=== PATIENT | female | born 1955 | race Caucasian/White ===

== ENCOUNTER → 2016-11-07 | Outpatient (CLI) | payer BC ==
--- NOTE | 2016-11-09 10:20 | MM ---
Reason for exam: screening (asymptomatic). Last mammogram was performed 1 year ago. History: Patient is postmenopausal and is nulliparous. Benign left mammotome panel of the left breast, September 26, 2004. Excisional biopsy of the left breast, 1994. Physical Findings: A clinical breast exam by your physician is recommended on an annual basis and results should be correlated with mammographic findings. MG Screening Mammo w CAD Bilateral CC and MLO view(s) were taken. Prior study comparison: November 04, 2015, bilateral MG screening mammo w CAD. September 24, 2014, bilateral MG screening mammo w CAD. July 30, 2013, bilateral MG screening mammo w CAD. There are scattered fibroglandular densities. No suspicious abnormality. No significant changes when compared with prior studies. ASSESSMENT: Negative, BI-RAD 1 RECOMMENDATION: Routine screening mammogram of both breasts in 1 year.
== END | disposition home or self-care (01) ==
LOC: RADMAMWWP 10:57
PROVIDERS: ATTEND Family Medicine
DX: Z12.31 Encounter for screening mammogram for malignant neoplasm of breast (principal)

== ENCOUNTER → 2018-01-01 | Outpatient (CLI) | payer BC ==
--- NOTE | 2018-01-02 09:31 | MM ---
Reason for exam: screening (asymptomatic). Last mammogram was performed 1 year and 2 months ago. History: Patient is postmenopausal and is nulliparous. Benign left mammotome panel of the left breast, September 26, 2004. Excisional biopsy of the left breast, 1994. Physical Findings: A clinical breast exam by your physician is recommended on an annual basis and results should be correlated with mammographic findings. MG Screening Mammo w CAD Bilateral CC and MLO view(s) were taken. Prior study comparison: November 07, 2016, bilateral MG screening mammo w CAD. November 04, 2015, bilateral MG screening mammo w CAD. The breast tissue is heterogeneously dense. This may lower the sensitivity of mammography. There are benign appearing round regional calcifications bilaterally. There is no discrete abnormality. ASSESSMENT: Benign, BI-RAD 2 RECOMMENDATION: Routine screening mammogram of both breasts in 1 year.
== END | disposition home or self-care (01) ==
LOC: RADMAMWWP 10:54
PROVIDERS: ATTEND Family Medicine
DX: Z12.31 Encounter for screening mammogram for malignant neoplasm of breast (principal)
CPT/HCPCS: 77067

== ENCOUNTER → 2018-10-23 | Outpatient (CLI) | payer BC ==
[2018-10-23 17:46] LABS: African American GFR (CKD) 90.9 (60.0-200.0); Albumin 4.6 g/dL (3.80-4.90); Albumin/Globulin Ratio 2.42 (1.60-3.17); Anion Gap 7.8 mmol/L (4.00-12.00); BUN/Creat Ratio 16.25 Ratio (12.00-20.00); Carbon Dioxide 28.2 mmol/L (21.6-31.8); Globulin 1.9 g/dL (1.6-3.3); Potassium 5.9 mmol/L (3.5-5.5); Total Bilirubin 0.4 mg/dL (0.2-1.2); Total Protein 6.5 g/dL (6.2-8.2)
[2018-10-23 18:41] LABS: Hemoglobin A1C 5.9 % (4.0-6.0)
== END | disposition home or self-care (01) ==
LOC: LABWHC1 09:28
PROVIDERS: ATTEND Nurse Practitioner
DX: Z00.01 Encounter for general adult medical examination with abnormal findings (principal); I10 Essential (primary) hypertension
CPT/HCPCS: 36415; 80053; 80061; 82306; 83036; 84443

== ENCOUNTER → 2019-09-08 | Outpatient (CLI) | payer BC ==
--- NOTE | 2019-09-08 13:42 | XR ---
EXAM TYPE: LUMBAR SPINE X RAY SERIES COMPARISON: NONE HISTORY: Pain TECHNIQUE: 4 views are submitted. FINDINGS: Alignment is anatomic. The pedicles are intact. The transverse processes are intact. There is no s pondylolysis or spondylolisthesis. Diffuse osteopenia. Multilevel facet arthropathy and degenerative disc disease. IMPRESSION: 1. Diffuse osteopenia with multilevel degenerative disc disease and facet arthropathy most marked at L5-S1. Multilevel foraminal encroachment suspected consider MRI.
--- NOTE | 2019-09-08 13:43 | XR ---
EXAMINATION TYPE: XR Hip Bilateral Complete DATE OF EXAM: 09/08/2019 COMPARISON: NONE HISTORY: Back pain TECHNIQUE: 2 views submitted FINDINGS: There is moderate concentric narrowing the joint space slightly greater superiorly. Hypertrophic spur ring noted and there is hypertrophic change of the acetabulum as well as a spur involving the greater trochanter. No acute fracture or dislocation. IMPRESSION: 1. Bilateral moderate to severe arthropathy correlate for femoral acetabular impingement. 2. Bilateral greater trochanter spurring which could be associated with trochanteric bursitis.
== END | disposition home or self-care (01) ==
LOC: RADXRMAIN 12:48
PROVIDERS: ATTEND Pediatrics
DX: M47.817 Spondylosis without myelopathy or radiculopathy, lumbosacral region (principal); M12.852 Other specific arthropathies, not elsewhere classified, left hip; M12.851 Other specific arthropathies, not elsewhere classified, right hip; M85.88 Other specified disorders of bone density and structure, other site
CPT/HCPCS: 72110; 73521

== ENCOUNTER 2020-01-12 12:22 | Emergency (ER) | payer BC ==
[2020-01-12 12:29] VITALS: RESP 18; TEMP 97.9
[2020-01-12] MEDS ORDERED: SODIUM CHLORIDE 0.9% 500 ML 500 ML IV STA (12:35)
[2020-01-12] MEDS ORDERED: SODIUM CHLORIDE 0.9% 1,000 ML IV STA (12:35)
--- NOTE | 2020-01-12 13:03 | ED ---
Weakness HPI - General Chief complaint: Fall Stated complaint: fall/lower back pain Time Seen by Provider: 01/12/20 12:34 Source: patient, family, RN notes reviewed, old records reviewed Mode of arrival: wheelchair Limitations: no limitations - History of Present Illness Initial comments: This is a 64-year-old female she presents today for evaluation regards multiple recent falls she denies any other neurological veins no headaches no numbness and tingling in arms or legs no loss of vision, she feels like it is mostly found that she is. No issues with mental status does have neurology follow-up next week. Patient fell today resulting in some significant back pain as well MD Complaint: generalized weakness, difficulty walking (Dizziness) -: week(s) Location: generalized Severity: mild Consistency: intermittent Improves with: none Worsens with: none Context: history of similar Associated Symptoms: confusion - Related Data Home Medications Medication Instructions Recorded Confirmed Acetaminophen Tab [Tylenol Tab] 500 mg PO Q8H PRN 01/12/20 01/12/20 Escitalopram [Lexapro] 10 mg PO DAILY 01/12/20 01/12/20 amLODIPine [Norvasc] 10 mg PO DAILY 01/12/20 01/12/20 Allergies Allergy/AdvReac Type Severity Reaction Status Date / Time No Known Allergies Allergy Verified 01/12/20 13:49 Review of Systems ROS Statement: Those systems with pertinent positive or pertinent negative responses have been documented in the HPI. ROS Other: All systems not noted in ROS Statement are negative. Past Medical History Past Medical History: Hypertension History of Any Multi-Drug Resistant Organisms: None Reported Past Surgical History: No Surgical Hx Reported Past Psychological History: Anxiety Smoking Status: Former smoker Past Alcohol Use History: None Reported Past Drug Use History: None Reported General Exam Limitations: no limitations General appearance: alert, in no apparent distress Head exam: Present: atraumatic, normocephalic, normal inspection Eye exam: Present: normal appearance, PERRL, EOMI. Absent: scleral icterus, conjunctival injection, periorbital swelling ENT exam: Present: normal exam, mucous membranes moist Neck exam: Present: normal inspection. Absent: tenderness, meningismus, lymphadenopathy Respiratory exam: Present: normal lung sounds bilaterally. Absent: respiratory distress, wheezes, rales, rhonchi, stridor Cardiovascular Exam: Present: regular rate, normal rhythm, normal heart sounds. Absent: systolic murmur, diastolic murmur, rubs, gallop, clicks GI/Abdominal exam: Present: soft, normal bowel sounds. Absent: distended, tenderness, guarding, rebound, rigid Extremities exam: Present: normal inspection, full ROM, normal capillary refill. Absent: tenderness, pedal edema, joint swelling, calf tenderness Back exam: Present: normal inspection Neurological exam: Present: alert, oriented X3, CN II-XII intact Psychiatric exam: Present: normal affect, normal mood Skin exam: Present: warm, dry, intact, normal color. Absent: rash Course Vital Signs 01/12/20 01/12/20 01/12/20 12:23 13:52 14:51 Temperature 97.9 F Pulse Rate 82 73 70 Respiratory 18 18 18 Rate Blood Pressure 136/75 127/62 127/69 O2 Sat by Pulse 99 98 99 Oximetry - Reevaluation(s) Reevaluation #1: 01/12/20 13:23 Medical records reviewed Reevaluation #2: 01/12/20 16:01 The patient length regarding symptoms, patient is refusing hospital admission and psychiatric or neurologic evaluation, patient has outpatient neurologic evaluation set up and patient will be EKG Findings - EKG Comments: EKG Findings:: EKG is sinus rate 79 KS 120 QRS 88 QTc 460 Medical Decision Making - Medical Decision Making 64 female to the ER for evaluation patient patient hasn't did look like normal pressure hydrocephalus on exam hydrocephalus on the computed tomography scan no patient does not want evaluation has outpatient evaluation 7 patient will be discharged home refusing admission - Lab Data Result diagrams: 01/12/20 12:57 01/12/20 12:57 Lab Results 01/12/20 01/12/20 01/12/20 Range/Units 12:57 12:57 12:57 WBC 13.6 H (3.8-10.6) k/uL RBC 4.31 (3.80-5.40) m/uL Hgb 13.2 (11.4-16.0) gm/dL Hct 41.5 (34.0-46.0) % MCV 96.2 (80.0-100.0) fL MCH 30.7 (25.0-35.0) pg MCHC 31.9 (31.0-37.0) g/dL RDW 12.2 (11.5-15.5) % Plt Count 244 (150-450) k/uL Neutrophils % 91 % Lymphocytes % 5 % Monocytes % 3 % Eosinophils % 0 % Basophils % 0 % Neutrophils # 12.4 H (1.3-7.7) k/uL Lymphocytes # 0.7 L (1.0-4.8) k/uL Monocytes # 0.4 (0-1.0) k/uL Eosinophils # 0.1 (0-0.7) k/uL Basophils # 0.0 (0-0.2) k/uL PT 9.9 (9.0-12.0) sec INR 0.9 (<1.2) APTT 20.1 L (22.0-30.0) sec Sodium 135 L (137-145) mmol/L Potassium 4.5 (3.5-5.1) mmol/L Chloride 104 (98-107) mmol/L Carbon Dioxide 25 (22-30) mmol/L Anion Gap 6 mmol/L BUN 18 H (7-17) mg/dL Creatinine 0.66 (0.52-1.04) mg/dL Est GFR (CKD-EPI)AfAm >90 (>60 ml/min/1.73 sqM) Est GFR (CKD-EPI)NonAf >90 (>60 ml/min/1.73 sqM) Glucose 110 H (74-99) mg/dL Calcium 9.7 (8.4-10.2) mg/dL Phosphorus 4.0 (2.5-4.5) mg/dL Magnesium 2.1 (1.6-2.3) mg/dL Total Bilirubin 0.4 (0.2-1.3) mg/dL AST 31 (14-36) U/L ALT 19 (4-34) U/L Alkaline Phosphatase 68 (38-126) U/L Creatine Kinase 99 (30-135) U/L Troponin I (0.000-0.034) ng/mL Total Protein 7.0 (6.3-8.2) g/dL Albumin 4.2 (3.5-5.0) g/dL Urine Color Urine Appearance (Clear) Urine pH (5.0-8.0) Ur Specific [place] (1.001-1.035) Urine Protein (Negative) Urine Glucose (UA) (Negative) Urine Ketones (Negative) Urine Blood (Negative) Urine Nitrite (Negative) Urine Bilirubin (Negative) Urine Urobilinogen (<2.0) mg/dL Ur Leukocyte Esterase (Negative) Urine WBC (0-5) /hpf Ur Squamous Epith Cells (0-4) /hpf Amorphous Sediment (None) /hpf Urine Mucus (None) /hpf 01/12/20 01/12/20 Range/Units 12:57 14:00 WBC (3.8-10.6) k/uL RBC (3.80-5.40) m/uL Hgb (11.4-16.0) gm/dL Hct (34.0-46.0) % MCV (80.0-100.0) fL MCH (25.0-35.0) pg MCHC (31.0-37.0) g/dL RDW (11.5-15.5) % Plt Count (150-450) k/uL Neutrophils % % Lymphocytes % % Monocytes % % Eosinophils % % Basophils % % Neutrophils # (1.3-7.7) k/uL Lymphocytes # (1.0-4.8) k/uL Monocytes # (0-1.0) k/uL Eosinophils # (0-0.7) k/uL Basophils # (0-0.2) k/uL PT (9.0-12.0) sec INR (<1.2) APTT (22.0-30.0) sec Sodium (137-145) mmol/L Potassium (3.5-5.1) mmol/L Chloride (98-107) mmol/L Carbon Dioxide (22-30) mmol/L Anion Gap mmol/L BUN (7-17) mg/dL Creatinine (0.52-1.04) mg/dL Est GFR (CKD-EPI)AfAm (>60 ml/min/1.73 sqM) Est GFR (CKD-EPI)NonAf (>60 ml/min/1.73 sqM) Glucose (74-99) mg/dL Calcium (8.4-10.2) mg/dL Phosphorus (2.5-4.5) mg/dL Magnesium (1.6-2.3) mg/dL Total Bilirubin (0.2-1.3) mg/dL AST (14-36) U/L ALT (4-34) U/L Alkaline Phosphatase (38-126) U/L Creatine Kinase (30-135) U/L Troponin I <0.012 (0.000-0.034) ng/mL Total Protein (6.3-8.2) g/dL Albumin (3.5-5.0) g/dL Urine Color Light Yellow Urine Appearance Cloudy H (Clear) Urine pH 7.0 (5.0-8.0) Ur Specific [place] 1.013 (1.001-1.035) Urine Protein Negative (Negative) Urine Glucose (UA) Negative (Negative) Urine Ketones Negative (Negative) Urine Blood Negative (Negative) Urine Nitrite Negative (Negative) Urine Bilirubin Negative (Negative) Urine Urobilinogen <2.0 (<2.0) mg/dL Ur Leukocyte Esterase Negative (Negative) Urine WBC 1 (0-5) /hpf Ur Squamous Epith Cells <1 (0-4) /hpf Amorphous Sediment Occasional H (None) /hpf Urine Mucus Rare H (None) /hpf - Radiology Data Radiology results: report reviewed (CT brain does show some hydrocephalus), image reviewed Disposition Clinical Impression: Dizziness, Hydrocephalus Disposition: HOME SELF-CARE Condition: Fair Instructions (If sedation given, give patient instructions): Fall Prevention for Older Adults (ED), Hydrocephalus (DC) Is patient prescribed a controlled substance at d/c from ED?: No Referrals: Josh Scherer MD [Primary Care Provider] - 1-2 days
[2020-01-12 13:35] LABS: Basophils % (A) 0 %; Eosinophils # (A) 0.1 k/uL (0-0.7); Eosinophils % (A) 0 %; HCT 41.5 % (34.0-46.0); HGB 13.2 gm/dL (11.4-16.0); Lymphocytes # (A) 0.7 k/uL (1.0-4.8); Lymphocytes % (A) 5 %; MCH 30.7 pg (25.0-35.0); MCHC 31.9 g/dL (31.0-37.0); MCV 96.2 fL (80.0-100.0); Mean Platelet Volume 8.1; Monocytes # (A) 0.4 k/uL (0-1.0); Monocytes % (A) 3 %; Neutrophils # (A) 12.4 k/uL (1.3-7.7); Neutrophils % (A) 91 %; Platelet Count 244 k/uL (150-450); RBC 4.31 m/uL (3.80-5.40); RDW 12.2 % (11.5-15.5); WBC 13.6 k/uL (3.8-10.6)
--- NOTE | 2020-01-12 13:42 | CT ---
EXAMINATION TYPE: CT brain wo con DATE OF EXAM: 01/12/2020 HISTORY: Fall. CT DLP: 1086.4 mGycm. Automated Exposure Control for Dose Reduction was Utilized. TECHNIQUE: CT scan of the head is performed without contrast. COMPARISON: None FINDINGS: There is no acute intracranial hemorrhage, midline shift, or mass effect identified. There is marked lateral and third ventricular dilatation which is out of proportion to cortical sulci. No extra-axial fluid collection. Bones and extracranial soft tissues are intact. The globes are gross ly symmetric. No evidence of depressed calvarial fracture. Mastoid air cells are clear. There is muco saman thickening of the left sphenoid sinus. Globes are grossly symmetric. IMPRESSION: 1. No acute intracranial hemorrhage, midline shift, or mass effect. 2. Hydrocephalus, with disproportionate lateral and third ventriculomegaly.
--- NOTE | 2020-01-12 13:46 | CT ---
EXAMINATION TYPE: CT lumbar spine wo con DATE OF EXAM: 01/12/2020 1:25 PM COMPARISON: None HISTORY: Fall with back pain CT DLP: 769.3 mGycm Automated exposure control for dose reduction was used. Unenhanced CT of the lumbar spine was performed. Bone and soft tissue window settings are submitted as well as coronal and sagittal reconstructions. There is no evidence of acute fracture or dislocation of the lumbar spine. Vertebral body heights are normal. No significant disc space narrowing. There is mild degenerative disc disease and facet arthr opathy. There is a left subarticular disc osteophyte at T12-L1 with indention of the ventral aspect o f the thecal sac. No high-grade canal stenosis. No high-grade neural foraminal bony encroachment. No abdominal aortic aneurysm. No nephrolithiasis. IMPRESSION: No acute fracture or dislocation of the lumbar spine.
[2020-01-12 13:50] LABS: ALT 19 U/L (4-34); AST 31 U/L (14-36); African American GFR (CKD) >90 (>60 ml/min/1.73 sqM); Albumin 4.2 g/dL (3.5-5.0); Alkaline Phosphatase 68 U/L (38-126); Anion Gap 6 mmol/L; Blood Urea Nitrogen 18 mg/dL (7-17); Calcium 9.7 mg/dL (8.4-10.2); Carbon Dioxide 25 mmol/L (22-30); Chloride 104 mmol/L (98-107); Creatine Kinase 99 U/L (30-135); Glucose 110 mg/dL (74-99); Magnesium 2.1 mg/dL (1.6-2.3); Non-African American GFR(CKD) >90 (>60 ml/min/1.73 sqM); Potassium 4.5 mmol/L (3.5-5.1); Sodium 135 mmol/L (137-145); Total Bilirubin 0.4 mg/dL (0.2-1.3)
[2020-01-12 13:58] LABS: INR 0.9 (<1.2); Partial Thromboplastin Time 20.1 sec (22.0-30.0); Prothrombin Time 9.9 sec (9.0-12.0)
[2020-01-12 14:23] LABS: Amorphous Sediment,Urine Occasional /hpf; Appearance,Urine Cloudy (Clear); Bilirubin,Urine Negative (Negative); Blood,Urine Negative (Negative); Color,Urine Light Yellow; Glucose,Urine (UA) Negative (Negative); Ketones,Urine Negative (Negative); Leukocyte Esterase,Urine Negative (Negative); Mucus,Urine Rare /hpf; Nitrite,Urine Negative (Negative); Protein,Urine Negative (Negative); Specific Gravity,Urine 1.013 (1.001-1.035); Squamous Epithelial Cell,Urine <1 /hpf (0-4); Urobilinogen,Urine <2.0 mg/dL (<2.0); WBC,Urine 1 /hpf (0-5)
[2020-01-12] MEDS ORDERED: ACET/COD 300 MG/30 MG STARTER PACK 6 TAB BTL PO STA (16:12)
[2020-01-12] MEDS ORDERED: Acetaminophen-Codeine 300-30mg TAB PO STA (16:12)
[2020-01-12 16:23] VITALS: BP 122/63; PULSE 68
== END 2020-01-12 16:22 | disposition home or self-care (01) ==
LOC: EC 12:22
DX: G91.9 Hydrocephalus, unspecified (principal); R42 Dizziness and giddiness; I10 Essential (primary) hypertension; F41.9 Anxiety disorder, unspecified; Z79.899 Other long term (current) drug therapy; Z87.891 Personal history of nicotine dependence; W19.XXXA Unspecified fall, initial encounter
CPT/HCPCS: 36415; 70450; 72131; 80053; 81001; 82550; 83735; 84100; 84484; 85025; 85610; 85730; 93005; 96360; 96361; 99284

== ENCOUNTER → 2020-02-24 | Outpatient (CLI) | payer BC ==
--- NOTE | 2020-02-24 22:30 | CT ---
EXAMINATION TYPE: CT brain wo con DATE OF EXAM: 02/24/2020 COMPARISON: 01/12/2020. HISTORY: weakness, confusion, loss of balance CT DLP: 1210 mGycm Automated exposure control for dose reduction was used. FINDINGS: There is interval placement of a right parietal approach ventriculostomy catheter with tip in the rig ht occipital horn. There is unchanged marked dilatation of the lateral and third ventricles. Otherwise no acute intracranial hemorrhage, midline shift or mass effect. The bailey-white differentiat ion is maintained. Otherwise no acute osseous abnormality. The paranasal sinuses and mastoid air cells are adequately ae rated. IMPRESSION: Interval right-sided ventriculostomy catheter placement. Persistent marked ventriculomegaly. Recommend clinical correlation for catheter malfunction. No intracranial hemorrhage or midline shift.
== END | disposition home or self-care (01) ==
LOC: RADCTMAIN 17:17
DX: G93.89 Other specified disorders of brain (principal); Z98.2 Presence of cerebrospinal fluid drainage device
CPT/HCPCS: 70450

== ENCOUNTER → 2020-03-22 | Outpatient (CLI) | payer BC ==
--- NOTE | 2020-03-22 17:35 | CT ---
EXAMINATION TYPE: CT brain wo con DATE OF EXAM: 03/22/2020 COMPARISON: 02/24/2020 and prior. HISTORY: Communicating hydrocephalus. Pt states she is having difficulty walking. CT DLP: 1181.70 mGycm Automated exposure control for dose reduction was used. FINDINGS: There is no acute intracranial hemorrhage or midline shift. The bailey-white differentiation is maintai janeen. There is unchanged right parietal approach ventriculostomy catheter with tip in the right occipital horn. The ventricles remain moderately enlarged, similar to prior study. No evidence of transependyma l flow. No acute osseous abnormality. The paranasal sinuses and mastoid air cells are adequately aerated. IMPRESSION: No significant interval change. Persistent ventriculomegaly with catheter in place.
== END | disposition home or self-care (01) ==
LOC: RADCTMAIN 16:05
DX: G93.89 Other specified disorders of brain (principal); Z98.2 Presence of cerebrospinal fluid drainage device
CPT/HCPCS: 70450

== ENCOUNTER → 2020-05-03 | Outpatient (CLI) | payer BC, OTHER ==
--- NOTE | 2020-05-03 15:42 | CT ---
EXAMINATION TYPE: CT brain wo con DATE OF EXAM: 05/03/2020 COMPARISON: 03/22/2020 INDICATION: Follow up for hydrocephalus. DLP: 1180.9 mGycm, Automated exposure control for dose reduction was used. CONTRAST: None CT of the brain is performed utilizing 3 mm thick sections through the posterior fossa and 3 mm thick sections through the remaining calvarium. Study is performed within 24 hours of arrival to the hosp ital. No abnormal hyperdensity is present to suggest an acute intracranial hemorrhage. No mass lesion is evident. No acute infarcts are evident. Ventricles and sulci are prominent for the patient age. Shunt catheter enters the occipital horn rig ht lateral ventricle position is unchanged. The ventricular dilatation is stable. Temporal horn surro unding is not evident. Paranasal sinuses and mastoid air cells within the [id number] are clear. IMPRESSIONS: 1. Hydrocephalus with shunt catheter. The ventricular appearance is stable from earlier exam. 2. No acute intracranial process.
== END | disposition home or self-care (01) ==
LOC: RADCTMAIN 15:00
DX: G91.9 Hydrocephalus, unspecified (principal); Z98.2 Presence of cerebrospinal fluid drainage device
CPT/HCPCS: 70450

== ENCOUNTER → 2020-08-23 | Outpatient (CLI) | payer MEDICARE, OTHER ==
--- NOTE | 2020-08-23 14:17 | CT ---
EXAMINATION TYPE: CT brain wo con DATE OF EXAM: 08/23/2020 HISTORY: Communicating hydrocephalus; shunt placement January 2020 CT DLP: 1081.6 mGycm. Automated Exposure Control for Dose Reduction was Utilized. TECHNIQUE: CT scan of the head is performed without contrast. COMPARISON: CT brain May 03, 2020 [address] older CTs. FINDINGS: Stable right parietal deyanira hole and [employer]CH[employer]ICIAN shunt catheter. There is no acute intracranial hem orrhage or midline shift identified. There is persistent mild to moderate diffuse hydrocephalus uncha nged from most recent CT and older CTs. Fourth ventricle stable and not significantly dilated. Patchy cerumen in the right external auditory canal is redemonstrated. The globes are intact and the visua lized sinuses are clear. Mild low-attenuation in the deep and periventricular white matter again se en. IMPRESSION: Stable right [employer]CH[employer]ICIAN shunt catheter with persistent mild to moderate hydrocephalus. No signifi cant change from most recent CT.
== END | disposition home or self-care (01) ==
LOC: RADCTMAIN 13:41
DX: G91.0 Communicating hydrocephalus (principal); Z98.2 Presence of cerebrospinal fluid drainage device
CPT/HCPCS: 70450

== ENCOUNTER → 2021-09-13 | Outpatient (CLI) | payer MEDICARE, BC ==
--- NOTE | 2021-09-13 14:21 | CT ---
EXAMINATION TYPE: CT brain wo con DATE OF EXAM: 09/13/2021 COMPARISON: CT dated 08/23/2020 HISTORY: Communicating hydrocephalus CT DLP: 1210 mGycm Automated exposure control for dose reduction was used. TECHNIQUE: CT scan of the brain is performed without IV contrast administration. FINDINGS: Unchanged position of the right transparietal [employer]ER shunt with the tip is seen at the posterior aspect o f the trigone/occipital horn of the right lateral ventricle. The fourth ventricle is not dilated with mild dilatation of the lateral ventricles and third ventricle yet improved compared to the previous CT scan. This could suggest aqueductal stenosis. Right parietal subcortical white matter hypodensity, stable. No acute intracranial hemorrhage or kurt s acute cortical infarct. No midline shift or herniation. Unremarkable sella and CP angles. No gross space-occupying lesion. Unremarkable orbits. Clear visualized paranasal sinuses and mastoid air cells . No aggressive bone lesion. IMPRESSION: Improved supratentorial ventricular dilatation as compared to the previous CT scan as described above . Nondilated fourth ventricle. Other findings as described above.
== END | disposition home or self-care (01) ==
LOC: RADCTMAIN 13:35
DX: G91.0 Communicating hydrocephalus (principal); I51.7 Cardiomegaly
CPT/HCPCS: 70450

== ENCOUNTER → 2022-06-27 | Outpatient (CLI) | payer MEDICARE ==
[2022-06-27 16:32] LABS: ALT 29 U/L (8-44); AST 22 U/L (13-35); African American GFR (CKD) 80.8 (60.0-200.0); Albumin 4.5 g/dL (3.8-4.9); Alkaline Phosphatase 83 U/L (41-126); Blood Urea Nitrogen 13.7 mg/dL (9.0-27.0); Calcium 9.8 mg/dL (8.7-10.3); Carbon Dioxide 25.8 mmol/L (20.0-27.5); Chloride 105 mmol/L (96-109); Chol/HDL Ratio 3.64 Ratio; Globulin 2.4 g/dL (1.6-3.3); Glucose 108 mg/dL (70-110); LDL Cholesterol,Calculated 123.2 mg/dL (0.0-131.0); Non-African American GFR(CKD) 69.7 (60.0-200.0); Potassium 4.6 mmol/L (3.5-5.5); Sodium 140 mmol/L (135-145); Total Protein 6.9 g/dL (6.2-8.2)
[2022-06-27 16:45] LABS: Basophils # (A) 0.04 X 10*3/uL (0.00-0.10); Basophils % (A) 0.6 %; Eosinophils % (A) 1.5 %; HCT 40.6 % (37.2-46.3); HGB 13.1 g/dL (12.0-15.0); Immature Grans, Automated 0.3 %; Lymphocytes # (A) 1.77 X 10*3/uL (0.90-5.00); Lymphocytes % (A) 26.6 %; MCH 30.5 pg (27.0-32.0); MCHC 32.3 g/dL (32.0-37.0); MCV 94.4 fL (80.0-97.0); Mean Platelet Volume 11.2 fL (9.5-12.2); Monocytes # (A) 0.53 X 10*3/uL (0.20-1.00); NRBC Per 100 WBC 0 /100 WBCS (0.0-0.0); Platelet Count 291 X 10*3/uL (140-440); RDW 12.9 % (11.5-14.5); WBC 6.66 X 10*3/uL (4.50-10.00)
== END | disposition home or self-care (01) ==
LOC: LABWHC1 10:36
PROVIDERS: ATTEND Pediatrics
DX: I10 Essential (primary) hypertension (principal); E55.9 Vitamin D deficiency, unspecified
CPT/HCPCS: 36415; 80053; 80061; 82306; 85025

== ENCOUNTER → 2022-09-14 | Outpatient (CLI) | payer MEDICARE, OTHER ==
--- NOTE | 2022-09-14 11:33 | CT ---
EXAMINATION TYPE: CT brain wo con CT DLP: 1153 mGycm, Automated exposure control for dose reduction was used. DATE OF EXAM: 09/14/2022 11:14 AM COMPARISON: 09/13/2021. 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 Contrast used: None. Oral contrast used: None. FINDINGS: Brain: Extra-axial spaces: No abnormal extra-axial fluid collections. Ventricular system: Ventriculostomy tubing tip terminating thought to be in the periventricular white matter series 6 image 44 of the right lateral ventricle posteriorly. Which may have migrated slightl y from prior. Tubing appears intact. No evidence of hydrocephalus the dilation of the ventricular sys tem is stable. Cerebral parenchyma: No acute intraparenchymal hemorrhage or mass effect. The bailey-white junction is well differentiated. Cerebellum: Unremarkable. Mass effect: No evidence of midline shift. Intracranial vasculature: Atherosclerotic calcifications of the intracranial vessels. Soft tissues: Normal. Calvarium/osseous structures: No depressed skull fracture. Paranasal sinuses and mastoid air cells: Mild scattered paranasal sinus disease. Visualized orbits: Orbital contents are intact. IMPRESSION: Right posterior approach ventriculostomy catheter with tip terminating near the periventricular white matter of the right lateral ventricle. Tip not definitively within the ventricle. Findings similar p rior. Stable dilation of ventricular system. No acute intracranial process.
== END | disposition home or self-care (01) ==
LOC: RADCTMAIN 10:52
PROVIDERS: ATTEND Neurological Surgery
DX: G91.0 Communicating hydrocephalus (principal)
CPT/HCPCS: 70450

== ENCOUNTER → 2023-06-20 | Outpatient (CLI) | payer MEDICARE, OTHER ==
[2023-06-20 11:16] LABS: Basophils # (A) 0.04 X 10*3/uL (0.00-0.10); Basophils % (A) 0.6 %; Eosinophils # (A) 0.14 X 10*3/uL (0.04-0.35); Eosinophils % (A) 2.1 %; HCT 41.4 % (37.2-46.3); HGB 13.6 g/dL (12.0-15.0); Lymphocytes # (A) 1.78 X 10*3/uL (0.90-5.00); Lymphocytes % (A) 26.6 %; MCH 30.4 pg (27.0-32.0); MCHC 32.9 g/dL (32.0-37.0); MCV 92.4 FL (80.0-97.0); Mean Platelet Volume 10.8 FL (9.5-12.2); Monocytes # (A) 0.52 X 10*3/uL (0.20-1.00); Monocytes % (A) 7.8 %; NRBC Per 100 WBC 0 X 10*3/uL (0.00-0.01); Neutrophils % (A) 62.8 %; Platelet Count 290 X 10*3/uL (140-440); RBC 4.48 X 10*6/uL (4.10-5.20); RDW 12.5 % (11.5-14.5); WBC 6.69 X 10*3/uL (4.50-10.00)
[2023-06-20 11:45] LABS: ALT 22 U/L (8-44); AST 16 U/L (13-35); Albumin 4.4 g/dL (3.8-4.9); Albumin/Globulin Ratio 1.76 Ratio (1.60-3.17); Alkaline Phosphatase 84 U/L (41-126); BUN/Creat Ratio 22.62 Ratio (12.00-20.00); Blood Urea Nitrogen 18.1 mg/dL (9.0-27.0); Carbon Dioxide 24.8 mmol/L (21.6-31.8); Chloride 104 mmol/L (96-109); Chol/HDL Ratio 3.64 Ratio; Globulin 2.5 g/dL (1.6-3.3); Glucose 121 mg/dL (70-110); Potassium 4.6 mmol/L (3.5-5.5); Sodium 141 mmol/L (135-145); Total Bilirubin 0.3 mg/dL (0.3-1.2); Total Protein 6.9 g/dL (6.2-8.2)
== END | disposition home or self-care (01) ==
LOC: LABWHC1 07:47
PROVIDERS: ATTEND Pediatrics
DX: Z00.00 Encounter for general adult medical examination without abnormal findings (principal); Z13.220 Encounter for screening for lipoid disorders; E55.9 Vitamin D deficiency, unspecified
CPT/HCPCS: 36415; 80053; 80061; 82306; 85025

== ENCOUNTER → 2023-09-17 | Outpatient (CLI) | payer MEDICARE ==
--- NOTE | 2023-09-17 11:52 | CT ---
EXAMINATION TYPE: CT brain wo con CT DLP: 1087.5 mGycm, Automated exposure control for dose reduction was used. 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 Priors in PACS. TECHNIQUE: Brain: Axial CT images of the brain were obtained with coronal and sagittal reformats created and rev iewed. Contrast used: None. Oral contrast used: None. FINDINGS: Brain: Extra-axial spaces: No abnormal extra-axial fluid collections. Ventricular system: Right parietal approach ventriculostomy cannula is again demonstrated with distal tip terminating in the region of the posterior horn/trigone of the right lateral ventricle abutting the periventricular white matter (series 3, image 32). Tubing appears intact. Slight decrease dilatio n of the ventricular system is stable. Nondilated fourth ventricle. Cerebral parenchyma: No acute intraparenchymal hemorrhage or mass effect. The bailey-white junction is well differentiated. Cerebellum: Unremarkable. Mass effect: No evidence of midline shift. Intracranial vasculature: Atherosclerotic calcifications of the intracranial vessels. Soft tissues: Dermal forehead calcifications noted. Calvarium/osseous structures: No depressed skull fracture. Paranasal sinuses and mastoid air cells: Minimal mucosal thickening within the left sphenoid sinus. T he remaining paranasal sinuses are clear. The mastoid air cells are clear. Visualized orbits: Orbital contents are intact. IMPRESSION: Right posterior approach ventriculostomy catheter with tip terminating again in the region of the tri gone/posterior horn of the right lateral ventricle abutting the periventricular white matter. Slightl y decreased mild dilation of ventricular system from prior exams. No acute intracranial process.
== END | disposition home or self-care (01) ==
LOC: RADCTMAIN 10:54
PROVIDERS: ATTEND Neurological Surgery
DX: G91.2 (Idiopathic) normal pressure hydrocephalus (principal); Z98.2 Presence of cerebrospinal fluid drainage device; I51.7 Cardiomegaly
CPT/HCPCS: 70450

== ENCOUNTER → 2023-12-11 | Outpatient (CLI) | payer MEDICARE ==
--- NOTE | 2023-12-16 15:01 | MM ---
Reason for Exam: Screening (asymptomatic). Last mammogram was performed 1 year(s) and 2 month(s) ago. Patient History: Menarche at age 13. Patient has no children. Postmenopausal. 1994, Excisional Biopsy on the Left side. 09/26/2004, Benign Core Biopsy on the left side. Risk Values: Yocasta 5 year model risk: 2.8%. NCI Lifetime model risk: 9.1%. Prior Study Comparison: 11/07/2016 Bilateral Screening Mammogram, [facility]. 01/01/2018 Bilateral Screening Mammogram, [facility]. 10/06/2022 Bilateral MG 3D screening mammo w/cad, [facility]. Tissue Density: There are scattered areas of fibroglandular density. Findings: Analyzed By CAD. The pattern is stable. Scattered benign skin calcifications are present. There is a focal asymmetry within the outer right breast measuring approximately 0.5 cm located 11 cm from the nipple. Additional workup is recommended. Left breast:No suspicious groups of microcalcifications, spiculated or lobular masses, architectural distortion or other secondary signs of malignancy are mammographically apparent. Overall Assessment: Incomplete: need additional imaging evaluation, BI-RAD 0 Management: Diagnostic Mammogram of the right breast. A negative mammogram report should not preclude additional follow up of suspicious palpable abnormalities. Patient should continue monthly self breast exam. A clinical breast exam by your physician is recommended on an annual basis and results should be correlated with mammographic findings. Note on Yocasta scores and lifetime risk: 1. A Yocasta score greater than 3% is considered moderate risk. If this is the case, consider specialist referral to assess eligibility for a risk reducing agent. 2. If overall lifetime risk for the development of breast cancer is 20% or higher, the patient may qualify for future screening with alternating mammogram and breast MRI. [facility], , 12/16/2023 2:58 PM. Electronically signed and approved by: Nehemias Resendiz D.O. Radiologis
== END | disposition home or self-care (01) ==
LOC: RADMAMWWP 11:29
PROVIDERS: ATTEND Pediatrics
DX: Z12.31 Encounter for screening mammogram for malignant neoplasm of breast
CPT/HCPCS: 77067

== ENCOUNTER → 2023-12-25 | Outpatient (CLI) | payer MEDICARE ==
--- NOTE | 2023-12-26 13:22 | MM ---
Reason for Exam: Additional evaluation requested from abnormal screening. Last screening mammogram was performed less than 1 month ago. Patient History: Menarche at age 13. Patient has no children. Postmenopausal. 1994, Excisional Biopsy on the Left side. 09/26/2004, Benign Core Biopsy on the left side. Risk Values: Yocasta 5 year model risk: 2.8%. NCI Lifetime model risk: 9.1%. Tissue Density: Right: There are scattered areas of fibroglandular density. Findings: Analyzed By CAD. Asymmetric density outer right breast is unchanged dating back to 2010. No suspicious nodules or densities seen. Overall Assessment: Benign, BI-RAD 2 Management: Screening Mammogram of both breasts in 1 year. . Results were given to the patient verbally at the time of exam. Patient should continue monthly self-breast exams. A clinical breast exam by your physician is recommended on an annual basis. This exam should not preclude additional follow-up of suspicious palpable abnormalities. Note on Yocasta scores and lifetime risk: 1. A Yocasta score greater than 3% is considered moderate risk. If this is the case, consider specialist referral to assess eligibility for a risk reducing agent. 2. If overall lifetime risk for the development of breast cancer is 20% or higher, the patient may qualify for future screening with alternating mammogram and breast MRI. [facility], , 12/26/2023 1:19 PM. Electronically signed and approved by: Kevin Chavez M.D. [facility]
== END | disposition home or self-care (01) ==
LOC: RADMAMWWP 13:59
PROVIDERS: ATTEND Pediatrics
CPT/HCPCS: 77061; 77065